=== PATIENT | male | born 1960 | race American Indian/Alaskan Native ===

== ENCOUNTER 2017-03-20 17:19 | Emergency (ER) | payer BC, OTHER ==
[2017-03-20 17:28] VITALS: BP 125/95
[2017-03-20] MEDS ORDERED: MOTRIN PO ONE (19:15)
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
== END 2017-03-20 19:46 | disposition home or self-care (01) ==
LOC: ED 17:19
DX: S13.4XXA Sprain of ligaments of cervical spine, initial encounter (principal); F17.200 Nicotine dependence, unspecified, uncomplicated; V49.49XA Driver injured in collision with other motor vehicles in traffic accident, initial encounter; Y93.9 Activity, unspecified; Y92.9 Unspecified place or not applicable; Y99.9 Unspecified external cause status
CPT/HCPCS: 99282